=== PATIENT | female | born 1975 | race Caucasian/White ===

== ENCOUNTER → 2020-11-27 | Outpatient (CLI) | payer BC ==
--- NOTE | 2020-11-28 11:01 | MM ---
Reason for exam: screening (asymptomatic). History: Family history of breast cancer in maternal grandmother at age 65. Took hormonal contraceptives for 10 years beginning at age 19. Physical Findings: A clinical breast exam by your physician is recommended on an annual basis and results should be correlated with mammographic findings. MG 3D Screening Mammo W/Cad Bilateral CC and MLO view(s) were taken. No prior studies available for comparison. There are scattered fibroglandular densities. There are benign appearing round coarse calcifications bilaterally. There is no discrete abnormality. ASSESSMENT: Benign, BI-RAD 2 RECOMMENDATION: Routine screening mammogram of both breasts in 1 year.
== END | disposition home or self-care (01) ==
LOC: RADMAMWWP 09:53
PROVIDERS: ATTEND Family Medicine
DX: Z12.31 Encounter for screening mammogram for malignant neoplasm of breast (principal)
CPT/HCPCS: 77063; 77067

== ENCOUNTER → 2021-11-28 | Outpatient (CLI) | payer BC ==
--- NOTE | 2021-11-29 14:26 | MM ---
Reason for exam: screening (asymptomatic). Last mammogram was performed 1 year ago. History: Family history of breast cancer in maternal grandmother at age 65. Took hormonal contraceptives for 10 years beginning at age 19. Physical Findings: A clinical breast exam by your physician is recommended on an annual basis and results should be correlated with mammographic findings. MG Screening Mammo w CAD Bilateral CC and MLO view(s) were taken. XCCL view(s) were taken of the left breast. Prior study comparison: November 27, 2020, bilateral MG 3d screening mammo w/cad. The breast tissue is heterogeneously dense. This may lower the sensitivity of mammography. Stable benign calcifications. There is no discrete abnormality. No significant changes when compared with prior studies. ASSESSMENT: Benign, BI-RAD 2 RECOMMENDATION: Routine screening mammogram of both breasts in 1 year.
== END | disposition home or self-care (01) ==
LOC: RADMAMWWP 09:26
PROVIDERS: ATTEND Family Medicine
DX: Z12.31 Encounter for screening mammogram for malignant neoplasm of breast (principal); Z80.3 Family history of malignant neoplasm of breast
CPT/HCPCS: 77067

== ENCOUNTER 2023-03-12 08:05 | Day surgery (SDC) | payer BC ==
--- NOTE | 2023-03-12 07:45 | P.GSHP ---
History of Present Illness H&P Date: 03/12/23 CHIEF COMPLAINT: GERD and colon screen HISTORY OF PRESENT ILLNESS: The patient is a 47-year-old female who presents with gastroesophageal reflux disease and need for colon screen. Upper and lower endoscopy were offered for further evaluation and management. PAST MEDICAL HISTORY: Please see list. PAST SURGICAL HISTORY: Please see list. MEDICATIONS: Please see list. ALLERGIES: Please see list. SOCIAL HISTORY: No illicit drug use FAMILY HISTORY: No reports of Crohn disease or ulcerative colitis. REVIEW OF ORGAN SYSTEMS: CONSTITUTIONAL: No reports of fevers or chills. GI: Denies any blood in stools or constipation. PHYSICAL EXAM: VITAL SIGNS: Stable GENERAL: Well-developed pleasant in no acute distress. HEENT: No scleral icterus. Extraocular movements grossly intact. Moist buccal mucosa. NECK: Supple without lymphadenopathy. CHEST: Unlabored respirations. Equal bilateral excursions. CARDIOVASCULAR: Regular rate and rhythm. Distal 2+ pulses. ABDOMEN: Soft, nondistended. MUSCULOSKELETAL: No clubbing, cyanosis, or edema. ASSESSMENT: 1. Gastroesophageal reflux disease 2. Colon screen. PLAN: 1. Recommend proceeding with an upper and lower endoscopy Past Medical History Past Medical History: GERD/Reflux Additional Past Medical History / Comment(s): Blood in stool a couple times and difficulty swallowing/food gets stuck History of Any Multi-Drug Resistant Organisms: None Reported Past Surgical History: Section, Orthopedic Surgery, Tonsillectomy, Tubal Ligation Additional Past Surgical History / Comment(s): L ankle surgery/ligament injury/hardware in place Past Anesthesia/Blood Transfusion Reactions: No Reported Reaction Additional Past Anesthesia/Blood Transfusion Reaction / Comment(s): Pt has never received blood. Smoking Status: Former smoker - Past Family History Mother Family Medical History: Cancer, CVA/TIA Father Family Medical History: Cancer Additional Family Medical History / Comment(s): Nonhodgkins lymphoma. Medications and Allergies Home Medications Medication Instructions Recorded Confirmed Type Ibuprofen [Motrin Ib] 200 mg PO Q6HR PRN 03/10/23 03/10/23 History Psyllium Husk [Fiber Capsule] 0.4 gm PO HS 03/10/23 03/10/23 History Allergies Allergy/AdvReac Type Severity Reaction Status Date / Time No Known Allergies Allergy Verified 03/10/23 13:51
[~2023-03-12 08:05] MED LIST: LACTATED RINGERS 1,000 ML IV SCH; LIDOCAINE 1% (10MG/ML) FOR IV START INTRADERMA PRN
[2023-03-12 08:41] VITALS: RESP 16; TEMP 97.2
[2023-03-12] MEDS ORDERED: PROPOFOL 10 MG/ML 20 ML VIAL IV ONE (09:08)
[2023-03-12] MEDS ORDERED: GLYCOPYRROLATE 0.2 MG/ML 2 ML VIAL ONE (09:08)
[2023-03-12] MEDS ORDERED: LIDOCAINE 2% INJ 20 MG/ML (2 ML VIAL) ONE (09:08)
[2023-03-12 10:16] VITALS: BP 128/68; PULSE 77
--- NOTE | 2023-03-12 10:23 | P.PCN ---
Date of Procedure: 03/12/23 Description of Procedure: PREOPERATIVE DIAGNOSIS: Gastroesophageal reflux disease Dysphagia POSTOPERATIVE DIAGNOSIS: Upper esophageal stenosis Gastroesophageal reflux disease with erosive esophagitis OPERATION: Esophagogastroduodenoscopy with rigid dilator over the guidewire 54 Fr with dilation Esophagogastroduodenoscopy with cold forceps biopsies stomach/antrum SURGEON: Hillary Douglas MD ANESTHESIA: MAC. INDICATIONS: The patient is a 47-year-old female who presents with a history of gastr oesophageal reflux disease with abdominal pain. Benefits and risks of the procedure were described. Informed consent was obtained. DESCRIPTION: The patient was brought into the endoscopy suite and laid in the left lateral decubitus position. After a timeout was confirmed, the procedure was initiated. An Olympus gastroscope was passed into the posterior oropharynx where an upper esophageal stenosis was identified. The scope was passed down to the distal esophagus. To address the upper esophageal stenosis, rigid dilator over guidewire was selected. Next using an English rigid dilator, a guidewire was placed through the gastroscope. Next the scope was withdrawn. A 54-Swazi rigid English dilator was passed carefully along the posterior oropharynx to 45 cm and left in place for 2-3 minutes stretch. The dilator was withdrawn including the guidewire. The scope was reentered along the posterior oropharynx with no findings of full- thickness tear of the upper esophageal sphincter. Additional findings below. Within the stomach, gastritis was identified along the body of the stomach with cold forceps biopsies obtained. The lower esophageal valve was evaluated with Hill grade 2 lower esophageal valve. LA grade B erosive esophagitis was identified. No full-thickness injury was encountered. The GI tract was desufflated. The patient tolerated the procedure well. FINDINGS: Upper esophageal stenosis dilated 54-Swazi rigid dilator Diaphragmatic hiatus at 35 cm from the incisors Squamocolumnar junction 35 cm from the incisors. Gastritis along the gastric body and fundus cold forceps biopsies obtained Duodenum with mild duodenitis. Biopsies obtained LA grade B erosive esophagitis Hill grade 2 lower esophageal valve. RECOMMENDATIONS: Omeprazole 40 mg daily Upper endoscopy as needed
--- NOTE | 2023-03-12 10:46 | P.PCN ---
Date of Procedure: 03/12/23 Description of Procedure: PREOPERATIVE DIAGNOSIS: Colonoscopy screening. POSTOPERATIVE DIAGNOSIS: Colonoscopy screening. Internal and external hemorrhoids grade 4 OPERATION: Colonoscopy to ascending colon SURGEON: Hillary Douglas MD. ANESTHESIA: MAC. INDICATIONS: The patient is a 61-year-old female who presents for colonoscopy screening. Benefits and risks were described and informed consent was obtained. DESCRIPTION OF PROCEDURE: The patient had undergone Sutab prep. The patient had been brought into the operating room and laid in the left lateral decubitus position. After adequate intravenous sedation, the rectum was examined with 2% lidocaine jelly. External hemorrhoids were encountered. The rectal tone was within normal limits. No lesions were palpated in the rectal vault. An Olympus colonoscope was advanced highly redundant sigmoid colon prohibiting advancement to the ascending colon. The prep was excellent. No scattered diverticulosis was encountered. No colonic polyps were found. No evidence of focal colitis was found. Retroflexion of the scope demonstrated grade 4 internal hemorrhoids without active bleeding or inflammation. The colon was desufflated. The patient had tolerated the procedure well. Withdrawal time was over 6 minutes. FINDINGS: Aronchick preparation quality scale 1 (1-5) Scope advanced to ascending colon Highly redundant sigmoid colon Internal hemorrhoids, grade 4 External prolapsed hemorrhoids, grade 4 No arteriovenous malformations. No adenomatous polyps. No focal colitis. RECOMMENDATIONS: Lower endoscopy in 5 years, 2027 Plan - Discharge Summary Discharge Rx Participant: No New Discharge Prescriptions: Continue Ibuprofen [Motrin Ib] 200 mg PO Q6HR PRN PRN Reason: Pain Psyllium Husk [Fiber Capsule] 0.4 gm PO HS Discharge Medication List Ibuprofen [Motrin Ib] 200 mg PO Q6HR PRN 03/10/23 [History] Psyllium Husk [Fiber Capsule] 0.4 gm PO HS 03/10/23 [History] Follow up Appointment(s)/Referral(s): Hillary Douglas MD [STAFF PHYSICIAN] - 1 Week Patient Instructions/Handouts: *Surgery [facility] - (Anesthesia) Discharge Instructions Outpatient Surgery Discharge Disposition: HOME SELF-CARE
== END 2023-03-12 11:17 | disposition home or self-care (01) ==
LOC: ORWHC2ENDO 08:05
PROVIDERS: ATTEND Surgery Plastic and Reconstructive Surgery
DX: Z12.11 Encounter for screening for malignant neoplasm of colon (principal); K29.50 Unspecified chronic gastritis without bleeding; K22.2 Esophageal obstruction; K64.3 Fourth degree hemorrhoids; K64.4 Residual hemorrhoidal skin tags; K21.00 Gastro-esophageal reflux disease with esophagitis, without bleeding; Z87.891 Personal history of nicotine dependence; Z90.89 Acquired absence of other organs; Z98.890 Other specified postprocedural states; Z98.891 History of uterine scar from previous surgery; Z82.3 Family history of stroke; Z79.899 Other long term (current) drug therapy
CPT/HCPCS: 81025; 88305; 45378; 43239; 43248; J2704; J2001; 43249

== ENCOUNTER → 2024-06-22 | Outpatient (CLI) | payer BC ==
--- NOTE | 2024-06-26 12:08 | MM ---
Reason for Exam: Screening (asymptomatic). Last mammogram was performed 1 year(s) and 7 month(s) ago. Patient History: Menarche at age 15. First Full-Term at age 25. Premenopausal. Hormonal Contraceptives for 10 years from age 19 until age 29. Maternal grandmother had breast cancer, age 65. Risk Values: Arpita 5 year model risk: 0.8%. NCI Lifetime model risk: 8.5%. Prior Study Comparison: 11/27/2020 Bilateral Screening Mammogram, [facility]. 11/28/2021 Bilateral Screening Mammogram, [facility]. 12/01/2022 Bilateral MG 3D screening mammo w/cad, [facility]. Tissue Density: The breasts are heterogeneously dense, which may obscure small masses. Findings: Analyzed By CAD. Right breast: There is no suspicious group of microcalcifications or new suspicious mass. Left breast: There is no suspicious group of microcalcifications or new suspicious mass. Overall Assessment: Negative, BI-RAD 1 Management: Screening Mammogram of both breasts in [address] [facility] will attempt to contact patient to return for supplemental views and ultrasound if indicated. Patient should continue monthly self-breast exams. A clinical breast exam by your physician is recommended on an annual basis. This exam should not preclude additional follow-up of suspicious palpable abnormalities. Note on Arpita scores and lifetime risk: 1. A Arpita score greater than 3% is considered moderate risk. If this is the case, consider specialist referral to assess eligibility for a risk reducing agent. 2. If overall lifetime risk for the development of breast cancer is 20% or higher, the patient may qualify for future screening with alternating mammogram and breast MRI. Electronically signed and approved by: Guanako Lal DO
== END | disposition home or self-care (01) ==
LOC: RADMAMWWP 09:51
PROVIDERS: ATTEND Family Medicine
DX: Z12.31 Encounter for screening mammogram for malignant neoplasm of breast
CPT/HCPCS: 77063; 77067